=== PATIENT | female | born 1970 | race Two or more races ===

== ENCOUNTER → 2018-03-04 | Outpatient (CLI) | payer MEDICAID | END | disposition home or self-care (01) | LOC: Rad HDHVI 09:02 | PROVIDERS: ATTEND Internal Medicine | DX: I51.7 Cardiomegaly (principal); R94.31 Abnormal electrocardiogram [ECG] [EKG] | CPT/HCPCS: 93306 ==

== ENCOUNTER → 2018-04-09 | Outpatient (CLI) | payer MEDICAID ==
[~2018-04-09] VITALS: Ht 154.9 cm; Wt 100.7 kg
== END | disposition home or self-care (01) ==
LOC: Rad HDHVI 13:41
PROVIDERS: ATTEND Internal Medicine
DX: I10 Essential (primary) hypertension (principal); E11.9 Type 2 diabetes mellitus without complications; G47.33 Obstructive sleep apnea (adult) (pediatric); R63.8 Other symptoms and signs concerning food and fluid intake; R94.31 Abnormal electrocardiogram [ECG] [EKG]; R07.89 Other chest pain; Z88.2 Allergy status to sulfonamides
CPT/HCPCS: 93017